=== PATIENT | male | born 1960 | race Caucasian/White ===

== ENCOUNTER 2018-10-14 05:58 | Day surgery (SDC) | payer OTHER ==
[~2018-10-14] VITALS: Ht 175.3 cm; Wt 93.3 kg
[2018-10-14] MEDS ORDERED: LOSARTAN (07:15)
[2018-10-14] MEDS ORDERED: VENTOLIN (07:15)
[2018-10-14] MEDS ORDERED: LIDOCAINE 2% (SDV) 5 ML INJ ONE (07:31)
[2018-10-14] MEDS ORDERED: PROPOFOL 40 ML ONE (07:31)
--- NOTE | 2018-10-14 07:39 | PREAC ---
Date/Time of Note Date/Time of Note DATE: 10/14/18 TIME: 07:38 Anesthesia Eval and Record Evaluation Time Pre-Procedure Interview DATE: 10/14/18 TIME: 07:38 Age 58 Sex male NPO: 8 hrs Preoperative diagnosis screening Planned procedure colonoscopy Past Medical History Past Medical History: Includes Cardio: HTN Pulm: Asthma Surgery & Anesthesia Issues No known issue Meds Anticoagulation: No Beta Joan within 24 hr: No Reason Beta Joan not given: Pt. not on B-Joan Reported Medications [Ventolin] No Conflict Check 10/14/18 [Losartan] No Conflict Check 10/14/18 Meds reviewed: Yes Allergies Allergies Reviewed: Yes Labs/Studies Labs Reviewed: Reviewed by anesthesiologist test: N/A Pre-procedure Exam Airway: Adequate mouth opening, Adequate thyromental dist Mallampati: Mallampati II Teeth: Normal Lung: Normal Heart: Normal ASA Physical Status ASA physical status: 2 Emergency: None Planned Anesthetic General/MAC: MAC Pre-operative Attestations Prior to commencing anesthesia and surgery, the patient was re-evaluated, there was verification of: *The patient's identity *The results of appropriate recent lab work and preoperative vital signs *The above evaluation not changing prior to induction *Anesthetic plan, risk benefits, alternative and complications discussed with patient/family; questions answered; patient/family understands, accepts and wishes to proceed. JENNI ZAMAN October 14, 2018 07:39
[2018-10-14 07:43] VITALS: Ht 175.3 cm; Wt 93.3 kg
[2018-10-14 07:47] VITALS: BP 138/74; PULSE 56; RESP 16
[2018-10-14] MEDS ORDERED: FENTAnyl 50 MCG/ML VIAL IV PRN (08:00)
[2018-10-14] MEDS ORDERED: ALBUTEROL 0.083% (NEB) 2.5 MG/3 ML AMP HHN PRN (08:00)
[2018-10-14] MEDS ORDERED: ONDANSETRON 4 MG INJ IV PRN (08:00)
[2018-10-14] MEDS ORDERED: ACETAMINOPHEN 500 MG TAB PO PRN (08:00)
--- NOTE | 2018-10-14 08:33 | PAC ---
Date/Time of Note Date/Time of Note DATE: 10/14/18 TIME: 08:31 Post-Anesthesia Notes Post-Anesthesia Note Last documented vital signs Vital Signs Date Temp Pulse Resp B/P (MAP) Pulse Ox O2 O2 Flow FiO2 Time Delivery Rate 10/14/18 97.9 98 56 65 16 16 138/74 93 100 Room 07:47 083 (95) 114/ Air 6L 0 59 face mask Activity: WNL Respiratory function: WNL Cardiovascular function: WNL Mental status: Baseline Pain reasonably controlled: Yes Hydration appropriate: Yes Nausea/Vomiting absent: Yes JENNI ZAMAN October 14, 2018 08:33
[2018-10-14 08:50] VITALS: BP 123/70; PULSE 62; RESP 18
== END 2018-10-14 10:36 | disposition home or self-care (01) ==
LOC: GIL 05:58
PROVIDERS: ATTEND Internal Medicine Gastroenterology
DX: Z12.11 Encounter for screening for malignant neoplasm of colon (principal); K64.8 Other hemorrhoids; K57.30 Diverticulosis of large intestine without perforation or abscess without bleeding; I10 Essential (primary) hypertension; J45.909 Unspecified asthma, uncomplicated